=== PATIENT | female | born 1995 | race Caucasian/White ===

== ENCOUNTER 2016-09-09 15:52 | Emergency (ER) | payer OTHER ==
[~2016-09-09] VITALS: Ht 160 cm; Wt 59.0 kg
[~2016-09-09 15:52] MED LIST: IBUP-1542 PO; IBUP800T25 PO; OMEP20CA16 PO; RANI150T5 PO
[2016-09-09 16:00] VITALS: Ht 160 cm; Wt 59.0 kg
[2016-09-09 17:56] LABS: URINE BLOOD (Dip) POC 2+ (NEGATIVE)
[2016-09-09] MEDS ORDERED: IBUPROFEN 600 MG TAB PO ONE (18:00)
[2016-09-09] MEDS ORDERED: IBUP400T22 PO (18:06)
--- NOTE | 2016-09-09 18:09 | ERD ---
ER Documentation Chief Complaint Date/Time DATE: 09/09/16 TIME: 18:07 Chief Complaint lt side of face tingling since yesterday , lt arm pain x 5 days HPI This 21-year-old female presents with pain radiating from the neck to the left arm for last 5 days. She has a history of trauma, weakness 5 years. She has images of the pain is some sensation of tingling in her face starting yesterday. Is primarily left side. She denies any weakness, visual changes, vomiting, headache, recent illnesses or fever. She is does admit to be under a lot of stress. ROS All systems reviewed and are negative except as per history of present illness. Medications Home Meds Active Scripts Ibuprofen* (Motrin*) 400 Mg Tab, 400 MG PO Q6, #15 TAB Prov:LADI MCKEON MD 09/09/16 Ibuprofen* (Motrin*) 600 Mg Tab, 600 MG PO Q6, #20 TAB Prov:LADI MCKEON MD 04/15/16 Ranitidine Hcl* (Ranitidine Hcl*) 150 Mg Tablet, 150 MG PO Q12, #60 TAB Prov:NIRALI GARCIA PA-C 01/24/16 Omeprazole* (Omeprazole*) 20 Mg Capsule.dr, 20 MG PO DAILY, #30 CAP Prov:NIRALI GARCIA PA-C 01/24/16 Ibuprofen* (Motrin*) 600 Mg Tab, 600 MG PO Q6, #30 TAB Prov:CLIFTON MARTINEZ PA-C 12/04/15 Ibuprofen* (Motrin*) 800 Mg Tab, 800 MG PO Q8 Y for PAIN AND OR ELEVATED TEMP, # 30 TAB Prov:LUIGI TEMPLETON PERINATAL DIRECTOR 11/02/15 Allergies Allergies: Uncoded Allergies: FLU VACCINE (Allergy, Unknown, 05/18/14) PMhx/Soc Medical and Surgical Hx: pt denies Medical Hx, pt denies Surgical Hx History of Surgery: No Anesthesia Reaction: No Hx Neurological Disorder: No Hx Respiratory Disorders: No Hx Cardiac Disorders: No Hx Psychiatric Problems: No Hx Miscellaneous Medical Probl: No Hx Alcohol Use: No Hx Substance Use: No Hx Tobacco Use: No Smoking Status: Never smoker Physical Exam Vitals Vital Signs Date Time Temp Pulse Resp B/P Pulse Ox O2 Delivery O2 Flow Rate FiO2 09/09/16 16:00 98.1 81 18 154/78 99 Physical Exam Const: [] Alert, [id number]. Head: Atraumatic Eyes: Normal Conjunctiva ENT: Normal External Ears, Nose and Mouth. Neck: Full range of motion..~ No meningismus. Mild reproducible pain in the left trapezius and paraspinous muscles of the neck. No midline tenderness or deformities. Resp: Clear to auscultation bilaterally Cardio: Regular rate and rhythm, no murmurs Abd: Soft, non tender, non distended. Normal bowel sounds Skin: No petechiae or rashes Back: No midline or flank tenderness Ext: No cyanosis, or edema Neur: Awake and alert. Cranial nerves II through XII grossly intact. Normal gait. Psych: Normal Mood and Affect Results 24 hrs Laboratory Tests Test 09/09/16 17:56 Bedside Urine pH (LAB) 7.0 Bedside Urine Protein (LAB) Negative Bedside Urine Glucose (UA) Negative Bedside Urine Ketones (LAB) Negative Bedside Urine Blood 2+ Bedside Urine Nitrite (LAB) Negative Bedside Urine Leukocyte Esterase (L Negative Current Medications Medications (Trade) Dose Ordered Sig/Kris Route PRN Reason Start Time Stop Time Status Last Admin Dose Admin Ibuprofen (Motrin) 600 mg ONCE ONCE PO 09/09/16 18:00 09/09/16 18:01 DC 09/09/16 17:57 Procedures/MDM EKG: Rate/Rhythm: [Normal Sinus Rhythm] rate equals 83 QRS, ST, T-waves: [No changes consistent w/ acute ischemia] Impression: [No evidence of ischemia or arrhythmia]. Impression-normal EKG Urine is negative for leukocytes, nitrites, glucose and hCG is negative. Patient was given ibuprofen 600 mg by mouth pain. Patient presents with paresthesias of the face and pain in left arm without signs or symptoms to suggest intracranial mass-effect, meningitis, ischemia or deficits. There is no signs or symptoms of significant bacterial infection, concerning cardiopulmonary complaints. Patient may have stress related symptoms such as hyperventilation and paresthesias and left arm pain appears to be cervical radicular pain. She will be treated with ibuprofen and further observation at home. The patient was stable with no new complaints during the ER course. Clinically, there is no current evidence to suggest meningitis, sepsis, acute abdomen, pneumonia, acute coronary syndrome, pulmonary embolism, or any other emergent condition appearing to require further evaluation or hospitalization. The patient should certainly return for any new or worsening symptoms per the aftercare instructions. They should otherwise follow-up with her primary care doctor for reevaluation this week. Departure Diagnosis: Primary Impression: Facial paresthesia Additional Impressions: Pain of left arm Arm paresthesia, left Condition: Stable Patient Instructions: Radiculopathy, Cervical, Paraesthesias Additional Instructions: Examinations normal today. Suspect pinched nerve paresthesias possibly due to stress. Recheck for new or worsening symptoms with primary care doctor. Drink plenty of fluids and rest at home. LADI MCKEON MD Sep 09, 2016 18:09
== END 2016-09-09 18:47 | disposition home or self-care (01) ==
LOC: FTE 15:52
DX: R20.2 Paresthesia of skin (principal)
CPT/HCPCS: 81003; 93005; Z7610

== ENCOUNTER 2016-12-07 21:24 | Emergency (ER) | payer OTHER ==
[~2016-12-07] VITALS: Ht 157.5 cm; Wt 60.0 kg
[~2016-12-07 21:24] MED LIST changes: +IBUP400T22 PO
[2016-12-07 21:27] VITALS: Ht 157.5 cm; Wt 60.0 kg
[2016-12-07 23:07] LABS: BASOPHILS % 0.4 % (0.0-2.0); EOSINOPHILS # 0.5 10^3/ul (0.0-0.5); EOSINOPHILS % 4.9 % (0.0-7.0); HEMATOCRIT 37.2 % (37.0-47.0); HEMOGLOBIN 11.8 g/dl (12.0-16.0); LYMPHOCYTES # 2.4 10^3/ul (0.8-2.9); LYMPHOCYTES % 23.8 % (15.0-51.0); MEAN CORPUSCULAR HEMOGLOBIN 25.9 pg (29.0-33.0); MEAN CORPUSCULAR HGB CONC 31.7 g/dl (32.0-37.0); MEAN CORPUSCULAR VOLUME 81.8 fl (82.0-101.0); MONOCYTE # 0.9 10^3/ul (0.3-0.9); MONOCYTES % 8.9 % (0.0-11.0); NEUTROPHIL # 6.1 10^3/ul (1.6-7.5); NEUTROPHILS % 61.7 % (39.0-77.0); PLATELET COUNT 374 10^3/UL (140-415); RED BLOOD COUNT 4.55 10^6/ul (4.20-5.40); RED CELL DISTRIBUTION WIDTH 14.3 % (11.5-14.5); WHITE BLOOD COUNT 9.9 10^3/ul (4.8-10.8)
[2016-12-07 23:09] LABS: ADD SCAN DIFF NO
[2016-12-07 23:31] LABS: CALCIUM 9.7 mg/dl (8.4-10.2); CREATININE 0.67 mg/dl (0.44-1.00); POTASSIUM 4.1 mmol/L (3.5-5.1)
[2016-12-07] MEDS ORDERED: IBUP400T22 PO (23:46)
--- NOTE | 2016-12-07 23:59 | ERD ---
ER Documentation Chief Complaint Date/Time DATE: 12/07/16 TIME: 23:51 Chief Complaint FEVER, WEAK AFTER BEING POKED BY NEEDLE WHEN CHECKING MOMS BS. HPI This is a 21 year old female presenting to ER with multiple complaints. Patient states she was checking her mothers blood glucose and may have accidently pricked herself with the needle afterwards 1 week ago. Patient states mother has history of diabetes mellitus type 2 and CVA. At some point, patient states her mother was told she may have possible hepatic encephalopathy. Patient is now concerned she may have encephalopathy. Patient reports looking up symptoms and she has some concerns regarding the symptoms. Patient reports generalized body aches, mild, generalized headache, fatigue, weakness and tactile fevers. No unilateral weakness, slurred speech, severe headache, loss of vision, diplopia, photophobia, change in vision, confusion or altered mental status. Patient's mother has no known history of hepatitis B, hepatitis C or HIV according to patient ROS All systems reviewed and are negative except as per history of present illness. Medications Home Meds Active Scripts Ibuprofen* (Motrin*) 400 Mg Tab, 400 MG PO Q6, #15 TAB Prov:MARIBEL CULP NP 12/07/16 Ibuprofen* (Motrin*) 400 Mg Tab, 400 MG PO Q6, #15 TAB Prov:LADI MCKEON MD 09/09/16 Ibuprofen* (Motrin*) 600 Mg Tab, 600 MG PO Q6, #20 TAB Prov:LADI MCKEON MD 04/15/16 Ranitidine Hcl* (Ranitidine Hcl*) 150 Mg Tablet, 150 MG PO Q12, #60 TAB Prov:NIRALI GARCIA PA-C 01/24/16 Omeprazole* (Omeprazole*) 20 Mg Capsule., 20 MG PO DAILY, #30 CAP Prov:NIRALI GARCIA PA-C 01/24/16 Ibuprofen* (Motrin*) 600 Mg Tab, 600 MG PO Q6, #30 TAB Prov:CLIFTON MARTINEZ PA-C 12/04/15 Ibuprofen* (Motrin*) 800 Mg Tab, 800 MG PO Q8 Y for PAIN AND OR ELEVATED TEMP, # 30 TAB Prov:LUIGI TEMPLETON NP 11/02/15 Allergies Allergies: Uncoded Allergies: FLU VACCINE (Allergy, Unknown, 05/18/14) PMhx/Soc Medical and Surgical Hx: pt denies Medical Hx, pt denies Surgical Hx History of Surgery: No Anesthesia Reaction: No Hx Neurological Disorder: No Hx Respiratory Disorders: No Hx Cardiac Disorders: No Hx Psychiatric Problems: No Hx Miscellaneous Medical Probl: No Hx Alcohol Use: No Hx Substance Use: No Hx Tobacco Use: No Smoking Status: Never smoker Physical Exam Vitals Vital Signs Date Time Temp Pulse Resp B/P Pulse Ox O2 Delivery O2 Flow Rate FiO2 12/08/16 00:00 84 16 134/84 100 Room Air 12/07/16 21:27 98.9 98 18 102/60 99 Physical Exam Const: No acute distress, alert, oriented to person place and time Head: Atraumatic Eyes: Normal Conjunctiva ENT: Normal External Ears, Nose and Mouth. Neck: Full range of motion..~ No meningismus. Resp: Clear to auscultation bilaterally Cardio: Regular rate and rhythm, no murmurs Abd: Soft, non tender, non distended. Normal bowel sounds Skin: No petechiae or rashes Back: No midline or flank tenderness Ext: No cyanosis, or edema Neur: Awake and alert Psych: Normal Mood and Affect Result Diagram: 12/07/16223512/07/162235 Results 24 hrs Laboratory Tests Test 12/07/16 22:36 White Blood Count 9.910^3/ul Red Blood Count 4.5510^6/ul Hemoglobin 11.8g/dl Hematocrit 37.2% Mean Corpuscular Volume 81.8fl Mean Corpuscular Hemoglobin 25.9pg Mean Corpuscular Hemoglobin Concent 31.7g/dl Red Cell Distribution Width 14.3% Platelet Count 23433^3/UL Mean Platelet Volume 10.0fl Neutrophils % 61.7% Lymphocytes % 23.8% Monocytes % 8.9% Eosinophils % 4.9% Basophils % 0.4% Nucleated Red Blood Cells % 0.0/100WBC Neutrophils # 6.110^3/ul Lymphocytes # 2.410^3/ul Monocytes # 0.910^3/ul Eosinophils # 0.510^3/ul Basophils # 0.010^3/ul Nucleated Red Blood Cells # 0.010^3/ul Sodium Level 140mmol/L Potassium Level 4.1mmol/L Chloride Level 103mmol/L Carbon Dioxide Level 27mmol/L Anion Gap 14 Blood Urea Nitrogen 11mg/dl Creatinine 0.67mg/dl Glucose Level 100mg/dl Calcium Level 9.7mg/dl Hepatitis B Surface Antigen NEGATIVE Hepatitis B Surface Antibody POSITIVE Hepatitis C Antibody NEGATIVE HIV (1&2) Antibody NEGATIVE Current Medications Medications (Trade) Dose Ordered Sig/Kris Route PRN Reason Start Time Stop Time Status Last Admin Dose Admin Ibuprofen (Motrin) 600 mg ONCE ONCE PO 12/08/16 00:00 12/08/16 00:01 DC 12/07/16 23:56 Procedures/MDM MDM: This is a 21-year-old female presenting to the emergency department with fatigue, generalized weakness, mild generalized headache and concern after needlestick injury. Patient had needlestick injury after checking her mother's blood glucose. Patient states mother was diagnosed with CVA with possible hepatic encephalitis. Patient is now concerned she may have hepatic encephalitis due to possible needlestick. Needlestick injury happened 1 week ago and patient developed symptoms soon after. CBC, BMP, hepatitis B, hepatitis C and HIV labs ordered. CBC shows Hgb 11.8 which is mild anemia. No significant infection. BMP shows no significant electrolyte imbalance. Hepatitis B, hepatitis C and HIV labs are pending. Patient's vital signs are stable. Patient remains alert and oriented to person place and time. No fevers or chills. No diplopia, loss of vision or blurry vision. No photophobia. No trauma to head or fall. No loss of consciousness. No nausea or vomiting. No confusion or altered mental status. Patient given Ibuprofen while in the ED. Low suspicion for CVA, TIA, meningitis, subdural hematoma, intracranial hemorrhage or mass. Differential diagnosis includes but not limited to tension headache, migraine headache, anemia, BPPV, cluster headache, sinus headache, sinusitis, trigeminal neuralgia, herpes zoster and postherpetic neuralgia. Patient is appropriate for outpatient management will be given prescription for ibuprofen. Instructed patient to follow-up with primary care provider in the next 2-3 days for reassessment. Resources provided. Return to ED for any high fever, chest pain, difficulty breathing, shortness breath, wheezing, vomiting, diarrhea, abdominal pain or any new or worsening symptoms. Patient verbalizes understanding. All questions answered at discharge. Departure Diagnosis: Primary Impression: Fatigue Fatigue type: unspecified Qualified Code: R53.83 - Fatigue, unspecified type Additional Impression: Headache Headache type: unspecified Headache chronicity pattern: acute headache Intractability: not intractable Qualified Code: R51 - Acute nonintractable headache, unspecified headache type Condition: Stable Patient Instructions: Weakness, Unk Cause Referrals: COMMUNITY CLINICS YOU HAVE RECEIVED A MEDICAL SCREENING EXAM AND THE RESULTS INDICATE THAT YOU DO NOT HAVE A CONDITION THAT REQUIRES URGENT TREATMENT IN THE EMERGENCY DEPARTMENT. FURTHER EVALUATION AND TREATMENT OF YOUR CONDITION CAN WAIT UNTIL YOU ARE SEEN IN YOUR DOCTORS OFFICE WITHIN THE NEXT 1-2 DAYS. IT IS YOUR RESPONSIBILITY TO MAKE AN APPOINTMENT FOR FOLOW-UP CARE. IF YOU HAVE A PRIMARY DOCTOR --you should call your primary doctor and schedule an appointment IF YOU DO NOT HAVE A PRIMARY DOCTOR YOU CAN CALL OUR PHYSICIAN REFERRAL HOTLINE AT IF YOU CAN NOT AFFORD TO SEE A PHYSICIAN YOU CAN CHOSE FROM THE FOLLOWING [facility] [address] [facility]. [facility] [address] [facility] [facility] [address] [facility] [address] [facility] [address] [facility]. [facility] [address] [facility]. [facility] YOU HAVE RECEIVED A MEDICAL SCREENING EXAM AND THE RESULTS INDICATE THAT YOU DO NOT HAVE A CONDITION THAT REQUIRES URGENT TREATMENT IN THE EMERGENCY DEPARTMENT. FURTHER EVALUATION AND TREATMENT OF YOUR CONDITION CAN WAIT UNTIL YOU ARE SEEN IN YOUR DOCTORS OFFICE WITHIN THE NEXT 1-2 DAYS. IT IS YOUR RESPONSIBILITY TO MAKE AN APPOINTMENT FOR FOLOW-UP CARE. IF YOU HAVE A PRIMARY DOCTOR --you should call your primary doctor and schedule and appointment IF YOU DO NOT HAVE A PRIMARY DOCTOR YOU CAN CALL OUR PHYSICIAN REFERRAL HOTLINE AT . IF YOU CAN NOT AFFORD TO SEE A PHYSICIAN YOU CAN CHOSE FROM THE FOLLOWING [facility] INSTITUTIONS: [facility] [address] [place] [address] [facility] [address] [place] [address] [facility] [address] [place] [address] Additional Instructions: Call your primary care doctor TOMORROW for an appointment during the next 2-3 days.See the doctor sooner or return here if your condition worsens before your appointment time. Return to ED for any high fever, chest pain, difficulty breathing, shortness breath, wheezing, vomiting, diarrhea, abdominal pain or any new or worsening symptoms. MARIBEL CULP NP Dec 07, 2016 23:59
[2016-12-08] VITALS: BP 134/84; PULSE 84; RESP 16
[2016-12-08] MEDS ORDERED: IBUPROFEN 600 MG TAB PO ONE
[2016-12-09] MEDS ORDERED: IBUP400T22 PO (20:32)
== END 2016-12-08 00:01 | disposition home or self-care (01) ==
LOC: FTE 21:24
DX: R53.83 Other fatigue (principal); R51 Headache
CPT/HCPCS: 80048; 85025; 86703; 86706; 86803; 87340; Z7502; Z7610; 99283

== ENCOUNTER 2016-12-09 19:43 | Emergency (ER) | payer OTHER ==
[~2016-12-09] VITALS: Ht 157.5 cm; Wt 59.5 kg
[2016-12-09 19:46] VITALS: Ht 157.5 cm; Wt 59.5 kg
[2016-12-09] MEDS ORDERED: IBUP400T22 PO (20:32)
--- NOTE | 2016-12-10 01:21 | ERA ---
ER Documentation Chief Complaint Date/Time DATE: 12/10/16 TIME: Chief Complaint right antecubital pain after drawing blood since 2 days ago HPI This is a 21-year-old female presenting with right arm pain 2 days. Patient had blood drawn 2 days ago. Patient states that the pain is dull. Patient also says that there is numbness and tingling at night. Patient has not had symptoms like this before in the past. There is no other complaints and patient has not taken any medications to relieve the symptoms. Vaccination status up-to-date. Denies any other medical conditions. ROS All systems reviewed and are negative except as per history of present illness. Medications Home Meds Active Scripts Ibuprofen* (Motrin*) 400 Mg Tab, 400 MG PO Q6, #30 TAB Prov:EDMOND KENNY PA-C 12/09/16 Ibuprofen* (Motrin*) 400 Mg Tab, 400 MG PO Q6, #15 TAB Prov:MARIBEL CULP NP 12/07/16 Ibuprofen* (Motrin*) 400 Mg Tab, 400 MG PO Q6, #15 TAB Prov:LADI MCKEON MD 09/09/16 Ibuprofen* (Motrin*) 600 Mg Tab, 600 MG PO Q6, #20 TAB Prov:LADI MCKEON MD 04/15/16 Ranitidine Hcl* (Ranitidine Hcl*) 150 Mg Tablet, 150 MG PO Q12, #60 TAB Prov:NIRALI GARCIA PA-C 01/24/16 Omeprazole* (Omeprazole*) 20 Mg Capsule.dr, 20 MG PO DAILY, #30 CAP Prov:NIRALI GARCIA PA-C 01/24/16 Ibuprofen* (Motrin*) 600 Mg Tab, 600 MG PO Q6, #30 TAB Prov:CLIFTON MARTINEZ PA-C 12/04/15 Ibuprofen* (Motrin*) 800 Mg Tab, 800 MG PO Q8 Y for PAIN AND OR ELEVATED TEMP, # 30 TAB Prov:LUIGI TEMPLETON NP 11/02/15 Allergies Allergies: Uncoded Allergies: FLU VACCINE (Allergy, Unknown, 05/18/14) PMhx/Soc Medical and Surgical Hx: pt denies Medical Hx, pt denies Surgical Hx History of Surgery: No Anesthesia Reaction: No Hx Neurological Disorder: No Hx Respiratory Disorders: No Hx Cardiac Disorders: No Hx Psychiatric Problems: No Hx Miscellaneous Medical Probl: No Hx Alcohol Use: No Hx Substance Use: No Hx Tobacco Use: No Smoking Status: Never smoker Physical Exam Vitals Vital Signs Date Time Temp Pulse Resp B/P Pulse Ox O2 Delivery O2 Flow Rate FiO2 12/09/16 19:46 99.5 91 20 128/77 100 Physical Exam Const: Healthy-appearing 21-year-old female. Well-nourished. Well- developed. No acute distress. Head: Normocephalic, Atraumatic. Eyes: Non-injected; No scleral erythema, discharge or foreign body. EOMI and RICHARD bilaterally. Ears: Normal External Ears, EACs clear, TM normal bilaterally without erythema. Nose: Normal nose without discharge, septal deviation, or sinus tenderness. Oral: No oral edema visualized. Mucous membranes moist and pink. Neck: No cervical lymphadenopathy, masses or goiter palpated. Full range of motion. Supple. Trachea midline. ~ No meningismus. Pulm: Good air movement in upper and lower respiratory tracts. No dyspnea, stridor, tripoding or drooling. Clear to auscultation bilaterally. Cardio: Regular rate and rhythm; No murmurs, gallops or rubs auscultated. No JVD grossly observed. Radial and posterior tibial pulses 2+ bilaterally. No cyanosis. Capillary refill less than 2 seconds. Abd: Soft, non tender, non distended. No guarding, masses. Normal bowel sounds. No McBurney's point tenderness. MS: Normal motor strength, normal tone with gross examination. Full range of motion. No pain with resisted range of motion of the affected extremity including pronation supination of the forearm. Flexion of the elbow reproduces mild pain against resistance. Palpation of the right antecubital space reproduces mild pain. Skin: No petechiae or rashes. No ulcer, induration, jaundice. Good turgor. Back: No midline, flank or CVA tenderness. Ext: No cyanosis, or edema. Normal movement of all extremities grossly observed. Neur: Awake, alert and oriented x3. Neurovascularly intact bilaterally. Psych: Normal Mood and Affect. Procedures/MDM This is a healthy 21-year-old female presenting with pain of the right antecubital space 2 days after getting blood drawn. Patient also describes numbness and tingling. Patient has a negative Phalen sign and percussion of the ulnar median nerves reproduces no discomfort or neurological sensations. At this time a very little suspicion for neurovascular compromise, bacterial/ viral etiologies, or involvement of the joint. Most likely diagnosis is pain secondary to injection during blood draw versus right bicep strain. I have educated the patient on Rice therapy and suggested that she follow-up with her primary care physician in the next 1-3 days for further evaluation and possible referral for to a specialist. Patient's vitals are stable and her current condition is appropriate for discharge. Patient will be discharged at this time with discharge instructions return precautions. Departure Diagnosis: Primary Impression: Strain of biceps muscle Qualified Code: S46.111A - Strain of biceps muscle, right, initial encounter Condition: Stable Patient Instructions: Muscle Strain, Extremity Additional Instructions: Follow up with your PCP within the next 1-3 days for a more thorough evaluation and a possible referral to a specialist. Return the the emergency department immediately if symptoms worsen or change. If you have any questions regarding medications, ask your pharmacist or us before you leave. If any adverse reactions occur while taking your medications, discontinue the treatment and return to the emergency department immediately. Take your medications as directed, and complete the entire course of treatment. EDMOND KENYN PA-C Dec 10, 2016 01:20
== END 2016-12-09 21:00 | disposition home or self-care (01) ==
LOC: FTE 19:43
DX: S46.111A Strain of muscle, fascia and tendon of long head of biceps, right arm, initial encounter (principal); X58.XXXA Exposure to other specified factors, initial encounter; Y92.9 Unspecified place or not applicable
CPT/HCPCS: 99283

== ENCOUNTER 2016-12-19 13:21 | Emergency (ER) | payer OTHER ==
[~2016-12-19] VITALS: Ht 157.5 cm; Wt 53.5 kg
[2016-12-19 13:31] VITALS: Ht 157.5 cm; Wt 53.5 kg
[2016-12-19] MEDS ORDERED: DEXAMETHASONE 10 MG/ML 1 ML INJ IM ONE (14:00)
--- NOTE | 2016-12-19 14:05 | ERD ---
ER Documentation Chief Complaint Date/Time DATE: 12/19/16 TIME: 14:03 Chief Complaint Complains of a sorethroat HPI Patient is a 21-year-old female with no medical problems who presents with a sore throat. She has a sore throat and was given antibiotics on Friday at another emergency department. She was given amoxicillin. She feels tired and does not feel like she is getting a lot better. She feels like her throat is more swollen. She has headache and says that she has a "slight fever". She notices a burning sensation in her chest but denies shortness of breath or trouble speaking. Her primary doctor is Dr. Alea Mak. ROS All systems reviewed and are negative except as per history of present illness. Medications Home Meds Active Scripts Ibuprofen* (Motrin*) 400 Mg Tab, 400 MG PO Q6, #30 TAB Prov:EDMOND KENNY PA-C 12/09/16 Ibuprofen* (Motrin*) 400 Mg Tab, 400 MG PO Q6, #15 TAB Prov:MARIBEL CULP NP 12/07/16 Ibuprofen* (Motrin*) 400 Mg Tab, 400 MG PO Q6, #15 TAB Prov:LADI MCKEON MD 09/09/16 Ibuprofen* (Motrin*) 600 Mg Tab, 600 MG PO Q6, #20 TAB Prov:LADI MCKEON MD 04/15/16 Ranitidine Hcl* (Ranitidine Hcl*) 150 Mg Tablet, 150 MG PO Q12, #60 TAB Prov:NIRALI GARCIA PA-C 01/24/16 Omeprazole* (Omeprazole*) 20 Mg Capsule., 20 MG PO DAILY, #30 CAP Prov:NIRALI GARCIA PA-C 01/24/16 Ibuprofen* (Motrin*) 600 Mg Tab, 600 MG PO Q6, #30 TAB Prov:CLIFTON MARTINEZ PA-C 12/04/15 Ibuprofen* (Motrin*) 800 Mg Tab, 800 MG PO Q8 Y for PAIN AND OR ELEVATED TEMP, # 30 TAB Prov:LUIGI TEMPLETON NP 11/02/15 Allergies Allergies: Coded Allergies: ibuprofen (Verified Allergy, Intermediate, [place]en Lips, 12/19/16) Uncoded Allergies: FLU VACCINE (Allergy, Unknown, 05/18/14) PMhx/Soc Medical and Surgical Hx: pt denies Medical Hx History of Surgery: No Anesthesia Reaction: No Hx Neurological Disorder: No Hx Respiratory Disorders: No Hx Cardiac Disorders: No Hx Psychiatric Problems: No Hx Miscellaneous Medical Probl: No Hx Alcohol Use: No Hx Substance Use: No Hx Tobacco Use: No FmHx Family History: diabetes Physical Exam Vitals Vital Signs Date Time Temp Pulse Resp B/P Pulse Ox O2 Delivery O2 Flow Rate FiO2 12/19/16 13:31 99.9 98 20 133/74 99 Physical Exam Const: No acute distress Head: Atraumatic Eyes: Normal Conjunctiva ENT: Normal External Ears, Nose and Mouth. No obvious signs of oropharyngeal swelling, tonsillar swelling, or stridor over the neck Neck: Full range of motion..~ No meningismus. No stridor Resp: Clear to auscultation bilaterally Cardio: Regular rate and rhythm, no murmurs Abd: Soft, non tender, non distended. Normal bowel sounds Skin: No petechiae or rashes Back: No midline or flank tenderness Ext: No cyanosis, or edema Neur: Awake and alert Psych: Normal Mood and Affect Results 24 hrs Current Medications Medications (Trade) Dose Ordered Sig/Kris Route PRN Reason Start Time Stop Time Status Last Admin Dose Admin Dexamethasone (Decadron) 10 mg ONCE ONCE IM 12/19/16 14:00 12/19/16 14:01 DC 12/19/16 14:00 Procedures/MDM Patient is a 21-year-old female with no medical problems who presents with a sore throat. She is already on amoxicillin and I will have her continue this prescription. The patient will be given Decadron 10 mg IM for symptomatic relief. She cannot take ibuprofen as she has an allergy. The patient can return for any worsening symptoms. I doubt retropharyngeal abscess, epiglottitis, or peritonsillar abscess. The patient can return for any worsening symptoms. Departure Diagnosis: Primary Impression: Pharyngitis Pharyngitis/tonsillitis etiology: unspecified etiology Qualified Code: J02.9 - Pharyngitis, unspecified etiology Condition: Fair Patient Instructions: Pharyngitis, Strep (Presumed) Referrals: Your doctor Additional Instructions: Call your primary care doctor TOMORROW for an appointment during the next 1 WEEK.Tell the secretary administrative assistant that you were referred from this facility.See the doctor sooner or return here if your condition worsens before your appointment time. TRUMAN RUSSELL MD Dec 19, 2016 14:05
[2016-12-19 14:29] VITALS: BP 121/63; PULSE 69; RESP 18; TEMP 98.1
== END 2016-12-19 14:30 | disposition home or self-care (01) ==
LOC: FTE 13:21
DX: J02.9 Acute pharyngitis, unspecified (principal)
CPT/HCPCS: 96372; J1100; Z7502